=== PATIENT | female | born 1980 | race Two or more races ===

== ENCOUNTER 2020-05-31 17:03 | Emergency (ER) | payer MEDICAID ==
[~2020-05-31] VITALS: Ht 152.4 cm; Wt 121.1 kg
[2020-05-31 17:10] VITALS: BP 134/86
[2020-05-31] MEDS ORDERED: ALBUTEROL SULF HFA 90MCG INH 200DOSE IN PRN (18:53)
[2020-05-31] MEDS ORDERED: CEFEPIME 2 GM in SODIUM CHL 0.9% 50 ML IV STA (19:04)
== END 2020-05-31 21:50 | disposition left against medical advice (07) ==
LOC: ER 17:03
DX: U07.1 COVID-19 (principal); J18.9 Pneumonia, unspecified organism; E11.9 Type 2 diabetes mellitus without complications; I10 Essential (primary) hypertension
CPT/HCPCS: 71045; 99283; J0692

== ENCOUNTER 2021-08-20 11:11 | Emergency (ER) | payer MEDICAID ==
[~2021-08-20] VITALS: Ht 152.4 cm; Wt 126.1 kg
[2021-08-20 12:02] VITALS: BP 159/97
== END 2021-08-20 12:04 | disposition home or self-care (01) ==
LOC: ER 11:11
DX: I16.0 Hypertensive urgency (principal); E11.9 Type 2 diabetes mellitus without complications; Z88.2 Allergy status to sulfonamides

== ENCOUNTER 2023-04-03 16:03 | Inpatient (IN) | payer MEDICAID ==
[~2023-04-03] VITALS: Ht 154.9 cm; Wt 122.7 kg
[2023-04-03 16:48] LABS: Basophils # (auto) 0.1 10 ^3/uL (0-0.2); Eosinophils # (auto) 0.1 10 ^3/uL (0-0.8); Eosinophils % (auto) 0.8 % (0.0-7.0); Hemoglobin 10.9 g/dL (12.2-16.2); Lymphocytes # (auto) 3.8 10 ^3/uL (0.4-5.4)
[2023-04-03 16:50] LABS: Basophils % (auto) 0.7 % (0.0-2.0); Hematocrit 34.7 % (36.0-46.0); Lymphocytes % (auto) 32.9 % (10.0-50.0); Mean Corpuscular Hemoglobin 22.4 pg (28.0-32.0); Mean Corpuscular Hgb Conc. 31.3 g/dL (32.0-36.0); Mean Corpuscular Volume 71.6 fL (80.0-100.0); Monocytes % (auto) 8.9 % (0.0-12.0); Neutrophils # (auto) 6.5 10 ^3/uL (1.6-8.6); Neutrophils % (auto) 56.7 % (37.0-80.0); Red Blood Cells 4.85 10^6/uL (4.0-5.20); Red Cell Distribution Width 18.9 % (11.8-14.3); White Blood Cell 11.5 10^3/uL (4.4-10.8)
[2023-04-03 17:07] LABS: Alanine Aminotransferase 11 U/L (7-40); Albumin 4.2 g/dL (3.2-4.8); Alkaline Phosphatase 114 U/L (46-116); Anion Gap 7 (5-15); Aspartate Aminotransferase 15 U/L (13-40); BUN/Creatinine Ratio 19.8 (10.0-20.0); Blood Urea Nitrogen 20 mg/dL (9-23); Calcium 9.1 mg/dL (8.7-10.4); Carbon Dioxide 28 mmol/L (20-30); Chloride 101 mmol/L (98-107); Glucose 100 mg/dL (74-106); Potassium 3.8 mmol/L (3.5-5.1); Sodium 136 mmol/L (136-145)
[2023-04-03 17:08] LABS: Bilirubin, Total 0.3 mg/dL (0.2-1.0); Total Protein 7.7 g/dL (5.7-8.2)
[2023-04-03] MEDS ORDERED: HYDROcodone-ACET 5/325MG TAB PO PRN (22:00)
[2023-04-03] MEDS ORDERED: TEMAZEPAM 15 MG CAP PO PRN (22:00)
[2023-04-03] MEDS ORDERED: hydrALAZINE HCL 20 MG/ML VL IV PRN (22:00)
[2023-04-03] MEDS ORDERED: ACETAMINOPHEN 325 MG TAB PO PRN (22:00)
[2023-04-03] MEDS ORDERED: METOPROLOL TARTRATE 50 MG TAB PO SCH (22:00)
[2023-04-03] MEDS ORDERED: DOCUSATE SOD 100 MG CAP PO PRN (22:00)
[2023-04-03] MEDS ORDERED: ONDANSETRON HCL 4 MG/2 ML VIAL IV PRN (22:00)
[2023-04-03] MEDS ORDERED: SODIUM CHLORIDE 0.9% 1,000 ML IV SCH (22:00)
[2023-04-03] MEDS ORDERED: amLODIPine BESYLATE 5 MG TAB PO ONE (22:30)
[2023-04-03] MEDS ORDERED: NITROGLYCERIN 0.4 MG SL TAB SL PRN (22:45)
[2023-04-03] MEDS ORDERED: MORPHINE SULFATE INJ 2 MG/ml SYRG IV PRN (22:45)
[2023-04-04 00:16] VITALS: PULSE 77; RESP 18; O2SAT 95
[2023-04-04] MEDS ORDERED: DEXTROSE (50%) 50ML SYRG IV PRN (03:30)
[2023-04-04 05:00] VITALS: BP 145/84; PULSE 61; RESP 21; TEMP 97.9; O2SAT 97
[2023-04-04] MEDS ORDERED: ACCU-CHEK COMFORT CURVE STRIP VI SCH (07:00)
[2023-04-04] MEDS ORDERED: InsuLIN REG 1unit/0.01ml Soln (100units/ml) SC SCH ×2 (07:00→22:00)
[2023-04-04] MEDS ORDERED: amLODIPine BESYLATE 5 MG TAB PO SCH (10:00)
[2023-04-04] MEDS ORDERED: ENOXAPARIN SOD 40 MG/0.4 ML SYRINGE SC SCH (10:00)
== END 2023-04-04 05:17 | disposition left against medical advice (07) | DRG 199 ==
LOC: ER 16:03 → EDBD 16:03 → TELE 22:43
PROVIDERS: ADMIT Nurse Practitioner Family; ATTEND Nurse Practitioner Family
DX: I16.1 Hypertensive emergency (principal); D72.829 Elevated white blood cell count, unspecified; E11.9 Type 2 diabetes mellitus without complications; Z88.2 Allergy status to sulfonamides; Z53.29 Procedure and treatment not carried out because of patient's decision for other reasons; I10 Essential (primary) hypertension
CPT/HCPCS: 36415; 70450; 71045; 80053; 82962; 83880; 84484; 85025; 99291; G0378